=== PATIENT | male | born 1990 | race Caucasian/White ===

== ENCOUNTER 2024-09-15 15:40 | Emergency (ER) | payer OTHER ==
[~2024-09-15] VITALS: Ht 172.7 cm; Wt 83.0 kg
[2024-09-15 15:41] VITALS: O2SAT 98
[2024-09-15 15:51] VITALS: BP 123/78; PULSE 109; RESP 18; TEMP 36.9; O2SAT 97
== END 2024-09-15 16:30 | disposition home or self-care (01) ==
LOC: ER 15:40
DX: F10.129 Alcohol abuse with intoxication, unspecified (principal); Y90.9 Presence of alcohol in blood, level not specified
CPT/HCPCS: 99282

== ENCOUNTER 2024-12-03 14:17 | Inpatient (IN) | payer OTHER, MEDICAID ==
[~2024-12-03] VITALS: Ht 170.2 cm; Wt 75.3 kg
[2024-12-03 14:19] VITALS: O2SAT 99
[2024-12-03 15:33] LABS: BASOPHILS % 0.5 % (0.0-2.0); EOSINOPHILS % 0.7 % (0.0-5.0); HEMATOCRIT. 43.9 % (42.0-52.0); HEMOGLOBIN. 15.1 g/dL (14.0-18.0); LYMPHOCYTES % 27.5 % (20.0-50.0); MEAN PLATELET VOLUME 8.1 fl (7.4-10.4); MONOCYTES % 8.7 % (2.0-8.0); NEUTROPHILS % 62.6 % (40.0-76.0); PLATELET 296 x1000/uL (130-400); RED BLOOD CELL COUNT 4.63 mill/uL (4.7-6.1); RED CELL DISTRIBUTION WIDTH 12.8 % (11.6-14.6)
[2024-12-03 15:34] LABS: CREATININE 0.8 mg/dL (0.6-1.3); UREA NITROGEN BLOOD 9 mg/dL (9-23)
[2024-12-03 15:36] LABS: ASPARTATE AMINOTRANSFERASE 63 IU/L (<34)
[2024-12-03 15:37] LABS: BILIRUBIN TOTAL 1.0 mg/dL (0.1-1.0); PROTEIN TOTAL 6.8 g/dL (6.0-8.3)
[2024-12-03] MEDS: LORAZEPAM 2MG/ML UD SYRINGE IM SCH (15:57)
[2024-12-03] MEDS: SODIUM CHLORIDE 0.9% 1,000 ML IV ONE (18:58)
[2024-12-03] MEDS ORDERED: CLONIDINE 0.1MG TABLET PO PRN (20:30)
[2024-12-03] MEDS ORDERED: ZOLPIDEM TARTRATE 5MG TABLET PO PRN (20:30)
[2024-12-03] MEDS ORDERED: HYDROCODONE/ACETAMINOPHEN 5/325MG TABLET PO PRN (20:30)
[2024-12-03] MEDS ORDERED: ONDANSETRON HCL 4MG/2ML INJ IV PRN (20:30)
[2024-12-03] MEDS ORDERED: ACETAMINOPHEN 325MG TABLET PO PRN (20:30)
[2024-12-03] MEDS ORDERED: MAGNESIUM/ALUMINUM HYDROXIDE/SIMETHICONE 30ML UDC PO PRN (20:30)
[2024-12-03] MEDS: SODIUM CHLORIDE 0.9% 1,000 ML IV SCH (22:05)
[2024-12-03] MEDS: ENOXAPARIN 40MG/0.4ML SYR SUBCUT SCH (22:07)
[2024-12-03] MEDS ORDERED: FOLI-43 PO (22:32)
[2024-12-03] MEDS ORDERED: BUPR-46 PO (22:32)
[2024-12-03] MEDS ORDERED: TRAZ-251 PO (22:32)
[2024-12-03] MEDS ORDERED: QUET50TA23 PO (22:32)
[2024-12-03] MEDS ORDERED: THIA100T88 PO (22:32)
[2024-12-03] MEDS ORDERED: MULT-1279 PO (22:32)
[2024-12-03] MEDS ORDERED: PANT40TA51 PO (22:32)
[2024-12-03] MEDS ORDERED: ESCI5TAB16 PO (22:32)
[2024-12-03 22:36] LABS: CLARITY URINE CLEAR (CLEAR); COLOR URINE YELLOW (YELLOW); GLUCOSE URINE NEGATIVE (NEGATIVE); KETONES URINE NEGATIVE (NEGATIVE); LEUKOCYTE ESTERASE URINE NEGATIVE (NEGATIVE); NITRITE URINE NEGATIVE (NEGATIVE); OCCULT BLOOD URINE TRACE (NEGATIVE); PH URINE 6.0 (4.5-8.0); PROTEIN URINE NEGATIVE (NEGATIVE); SPECIFIC GRAVITY URINE 1.005 (1.005-1.030); UROBILINOGEN URINE 0.2 E.U./dL (0.2-1.0)
[2024-12-03 22:41] VITALS: BP 125/76; PULSE 86; RESP 17; TEMP 36.5; O2SAT 99
[2024-12-03 22:41] LABS: *AMPHETAMINES SCREEN URINE PRESUMPTIVE POSITIVE (NEGATIVE); *BARBITURATES SCREEN URINE NEGATIVE (NEGATIVE); *BENZODIAZEPINES SCREEN URINE NEGATIVE (NEGATIVE); *COCAINE SCREEN URINE NEGATIVE (NEGATIVE); CANNABINOID URINE SCREEN NEGATIVE (NEGATIVE); ECSTASY MDMA SCREEN URINE NEGATIVE (NEGATIVE); METHADONE URINE SCREEN NEGATIVE (NEGATIVE); OPIATES URINE SCREEN NEGATIVE (NEGATIVE); PHENCYCLIDINE URINE SCREEN NEGATIVE (NEGATIVE)
[2024-12-03 22:45] VITALS: BP 125/76; PULSE 86; RESP 17; TEMP 36.5292
[2024-12-03 22:52] LABS: BACTERIA URINE TRACE; RBC URINE 0-2 /hpf (0-2); SQUAMOUS EPITHELIAL CELL URINE RARE /lpf (RARE/1+); WBC URINE 0-2 /hpf (0-2)
[2024-12-04] VITALS (7 sets, daily range): BP systolic 101–125; BP diastolic 67–83; PULSE 60–100; RESP 16–18; TEMP 36.3–37; O2SAT 96–99
[2024-12-04] MEDS: MVI, ADULT NO.1 10 ML, FOLIC ACID 1 MG, THIAMINE HCL 100 MG in SODIUM CHLORIDE 0.9% 1,0... IV SCH (01:08)
[2024-12-04 08:26] LABS: BASOPHILS % 0.4 % (0.0-2.0); EOSINOPHILS % 1.6 % (0.0-5.0); HEMATOCRIT. 41.6 % (42.0-52.0); HEMOGLOBIN. 14.2 g/dL (14.0-18.0); LYMPHOCYTES % 31.4 % (20.0-50.0); MEAN PLATELET VOLUME 8.5 fl (7.4-10.4); MONOCYTES % 8.8 % (2.0-8.0); NEUTROPHILS % 57.8 % (40.0-76.0); PLATELET 225 x1000/uL (130-400); RED BLOOD CELL COUNT 4.30 mill/uL (4.7-6.1); RED CELL DISTRIBUTION WIDTH 12.8 % (11.6-14.6)
[2024-12-04] MEDS: PANTOPRAZOLE SODIUM 40 MG/VIAL IV SCH (08:36)
[2024-12-04 08:37] LABS: TROPONIN I HIGH SENSITIVITY 27 ng/L (3.0-53)
[2024-12-04 08:38] LABS: CREATININE 0.7 mg/dL (0.6-1.3)
[2024-12-04 08:39] LABS: UREA NITROGEN BLOOD 9 mg/dL (9-23)
[2024-12-04] MEDS: LORAZEPAM 0.5MG TABLET PO PRN (18:48)
[2024-12-04] MEDS: TRAZODONE HCL 50MG TABLET PO SCH (21:28)
[2024-12-04] MEDS: QUETIAPINE FUMARATE 50MG TABLET PO SCH (21:28)
[2024-12-05] VITALS: BP 128/81; PULSE 70; RESP 18; TEMP 37; O2SAT 96
[2024-12-05 04:04] VITALS: BP 133/78; PULSE 77; RESP 18; TEMP 36.6; O2SAT 97
[2024-12-05 07:15] LABS: BASOPHILS % 0.5 % (0.0-2.0); EOSINOPHILS % 2.6 % (0.0-5.0); HEMATOCRIT. 41.0 % (42.0-52.0); HEMOGLOBIN. 14.1 g/dL (14.0-18.0); LYMPHOCYTES % 39.9 % (20.0-50.0); MEAN PLATELET VOLUME 8.4 fl (7.4-10.4); MONOCYTES % 7.6 % (2.0-8.0); NEUTROPHILS % 49.4 % (40.0-76.0); PLATELET 210 x1000/uL (130-400); RED BLOOD CELL COUNT 4.27 mill/uL (4.7-6.1); RED CELL DISTRIBUTION WIDTH 12.6 % (11.6-14.6)
[2024-12-05 07:35] LABS: CREATININE 0.7 mg/dL (0.6-1.3)
[2024-12-05 07:36] LABS: UREA NITROGEN BLOOD 8 mg/dL (9-23)
[2024-12-05 08:00] VITALS: BP 105/66; PULSE 67; RESP 18; TEMP 35.6; O2SAT 98
[2024-12-05] MEDS: BUPROPION HCL 150MG SR TABLET PO SCH (08:45)
[2024-12-05 12:00] VITALS: BP 125/80; PULSE 79; RESP 18; O2SAT 100
[2024-12-05] MEDS ORDERED: QUET50TA23 PO (14:12)
[2024-12-05] MEDS ORDERED: FOLI-43 PO (14:12)
[2024-12-05] MEDS ORDERED: TRAZ-251 PO (14:12)
[2024-12-05] MEDS ORDERED: PANT40TA51 PO (14:12)
[2024-12-05] MEDS ORDERED: ESCI5TAB16 PO (14:12)
[2024-12-05] MEDS ORDERED: THIA100T88 PO (14:12)
[2024-12-05] MEDS ORDERED: BUPR-46 PO (14:12)
[2024-12-05] MEDS ORDERED: MULT-1279 PO (14:12)
[2024-12-05 16:19] VITALS: BP 125/80; PULSE 79; RESP 18; TEMP 97
== END 2024-12-05 17:22 | disposition home or self-care (01) | DRG 918 ==
LOC: ER 14:17 → EDBEDREQ 20:22 → EDBEDREQTM 20:22 → ENRESERV 21:39 → 8WST 22:21
PROVIDERS: ADMIT Internal Medicine; ATTEND Internal Medicine
DX: T43.651A Poisoning by methamphetamines accidental (unintentional), initial encounter (principal); R00.2 Palpitations; R00.0 Tachycardia, unspecified; F10.229 Alcohol dependence with intoxication, unspecified; F15.129 Other stimulant abuse with intoxication, unspecified; G47.00 Insomnia, unspecified; F32.A Depression, unspecified; F41.9 Anxiety disorder, unspecified; F39 Unspecified mood [affective] disorder; Z79.899 Other long term (current) drug therapy; Z88.0 Allergy status to penicillin; Y90.7 Blood alcohol level of 200-239 mg/100 ml
CPT/HCPCS: 36415; 80048; 80053; 80305; 80320; 81003; 84443; 84484; 85025; 93005; 93970; 96360; 96361; 96372; 99285; J1650; J2060; J2470; J3411; J3490; J7030; G0480